=== PATIENT | female | born 1945 | race Caucasian/White ===

== ENCOUNTER 2019-01-18 10:26 | Outpatient (CLI) | payer MEDICARE ==
--- NOTE | 2019-01-18 11:05 | MMO ---
Bilateral MAMMO Bilat Screen [facility]. CLINICAL HISTORY: Patient is 73 years old and is seen for screening. The patient has no family history of breast cancer. The patient has no personal history of cancer. The patient has a history of bilateral Implants at age 39 - benign. VIEWS: The views performed were: bilateral craniocaudal; bilateral mediolateral oblique; and bilateral Implant displaced with tomosynthesis. FILMS COMPARED: The present examination has been compared to prior imaging studies performed at [facility] on 02/20/2015 and 12/23/2016, and at [facility] on 03/12/2007 and 12/26/2008. This study has been interpreted with the assistance of computer-aided detection. MAMMOGRAM FINDINGS: There are scattered fibroglandular densities. There are benign appearing calcifications seen in the left breast. There are no suspicious masses, suspicious calcifications, or new areas of architectural distortion. IMPRESSION: THERE IS NO MAMMOGRAPHIC EVIDENCE OF MALIGNANCY. A ROUTINE FOLLOW-UP MAMMOGRAM IN 1 YEAR IS RECOMMENDED. THE RESULTS OF THIS EXAM WERE SENT TO THE PATIENT. ACR BI-RADS Category 2 - Benign finding MAMMOGRAPHY NOTE: 1. A negative mammogram report should not delay a biopsy if a dominant of clinically suspicious mass is present. 2. Approximately 10% to 15% of breast cancers are not detected by mammography. 3. Adenosis and dense breasts may obscure an underlying neoplasm. Reported by: EMELY GAUTAM MD Electonically Signed: [id number]
--- NOTE | 2019-01-18 17:35 | BD ---
Exam: DEXA Bone Density Indications: Post-menopausal screening. Lumbar Spine: BMD (g/cm2) L1 1.273 T-Score: 2.6 L2 1.145 T-Score: 1.1 L3 1.014 T-Score: -0.6 L4 1.011 T-Score: 0.5 L1-L4 1.096 T-Score: 0.4 Femoral Neck: 0.720 T-Score: 1.2 Total Femur: 0.869 T-Score: -0.6 Impression: 1. Bone mineral density of the lumbar spine within normal range. 2. Bone mineral density of the femoral neck indicates osteopenia. [id number] risk: Major osteoporotic fracture: 8.3% Hip fracture: 1.1% POS: [facility]
== END 2019-01-18 10:27 | disposition home or self-care (01) ==
LOC: BICMAMMO 10:26
DX: Z12.31 Encounter for screening mammogram for malignant neoplasm of breast (principal); Z13.820 Encounter for screening for osteoporosis; M85.859 Other specified disorders of bone density and structure, unspecified thigh
CPT/HCPCS: 77063; 77067; 77080